=== PATIENT | male | born 1965 | race Caucasian/White ===

== ENCOUNTER → 2024-10-01 09:59 | Outpatient (BNVA) | payer MEDICARE, SELFPAY | PROVIDERS: PCP Nurse Practitioner Family; Visit Provider Podiatrist Foot & Ankle Surgery | DX: Q82.8 Other specified congenital malformations of skin (principal); M21.622 Bunionette of left foot; E11.69 Type 2 diabetes mellitus with other specified complication | CPT/HCPCS: 99213 ==